=== PATIENT | male | born 1935 | race Caucasian/White ===

== ENCOUNTER 2017-08-17 03:50 | Emergency (ER) | payer MEDICARE, OTHER ==
[~2017-08-17] VITALS: Ht 175.3 cm; Wt 113.6 kg
[~2017-08-17 03:50] MED LIST: AMOXICILLIN 8751 TAB PO; ASPIRIN E.C. 8181 MG PO; ATORVASTATIN; B-121000 MCG PO; BENICAR40 MG PO; BYDUREON PEN2 MG; CARDURA 2MG2 MG PO; DOXAZOCIN; HYDROCHLOROT; INSULIN HUMA100 U/ML IJ; KLOR-CON M2020 MEQ PO; LANTUS100 U/ML; LEVOXYL0.075 MG PO; LIPITOR 80MG80 MG PO; NORCO 325 MG-51 TAB PO; NORVASC 10MG10 MG PO; NOVOLOG FLEX100 U/ML SC; PLAVIX 75MG TAB75 MG PO; PRAVACHOL80 MG PO; PROTONIX 40MG T40 MG PO; TOPROL; TOPROL XL 25MG25 MG PO; TOPROL XL100 MG PO; ZYLOPRIM 300MG300 MG PO
[2017-08-17 03:51] VITALS: TEMP 98.1
[2017-08-17 04:38] LABS: BASO # 0.1 (0.0-0.2); BASO % 0.7 % (0.0-2.0); EOS # 0.2 (0.0-0.7); EOS % 1.6 % (0-4.0); GRAN # 6.6 (1.4-6.5); GRAN % 72.1 % (42.2-75.2); LYMPH # 1.4 (1.2-3.4); LYMPH % 15.1 % (20.0-51.0); MEAN CELL VOLUME 94 fl (80.0-100.0); MEAN CORPUSCULAR HGB CONC 35 g/dl (33.0-37.0); MEAN PLATELET VOLUME 9.6 fl (7.4-10.4); MONO # 0.9 (0.1-0.6); MONO % 9.6 % (1.7-9.3); PLATELET COUNT 229 K/mm3 (130-400); RED BLOOD COUNT 3.62 M/mm3 (4.20-5.60)
[2017-08-17 04:39] LABS: HEMOGLOBIN 11.8 g/dl (13.5-18.0); MEAN CORPUSCULAR HEMOGLOBIN 33 pg (27.0-31.0)
[2017-08-17 05:00] LABS: ALANINE AMINOTRANSFERASE 31 U/L (21-72); ALKALINE PHOSPHATASE 123 U/L (50-136); ANION GAP 14 mmol/L (7-16); AST,SGOT 24 U/L (15-37); BILIRUBIN,TOTAL 0.6 mg/dL (0.0-1.0); BLOOD UREA NITROGEN 33 mg/dL (9-20); CALCIUM 9.2 mg/dL (8.4-10.2); CARBON DIOXIDE 22 mmol/L (22-30); CHLORIDE 104 mmol/L (98-107); CREATININE, serum 1.93 mg/dL (0.66-1.25); GLUCOSE 99 mg/dL (74-106); POTASSIUM 3.3 mmol/L (3.4-5.0); SODIUM 139 mmol/L (137-145); TOTAL PROTEIN 7.4 gm/dL (6.4-8.2)
[2017-08-17 05:11] LABS: TROPONIN-I < 0.012 ng/mL (0.000-0.034)
[2017-08-17 05:59] VITALS: BP 104/54; PULSE 76
== END 2017-08-17 06:01 | disposition home or self-care (01) ==
LOC: COL.ER 03:50
PROVIDERS: Family Medicine
DX: S06.330A Contusion and laceration of cerebrum, unspecified, without loss of consciousness, initial encounter (principal); S05.42XA Penetrating wound of orbit with or without foreign body, left eye, initial encounter; I10 Essential (primary) hypertension; E11.9 Type 2 diabetes mellitus without complications; Z79.02 Long term (current) use of antithrombotics/antiplatelets; Z79.82 Long term (current) use of aspirin; W18.39XA Other fall on same level, initial encounter; W22.8XXA Striking against or struck by other objects, initial encounter; Y92.009 Unspecified place in unspecified non-institutional (private) residence as the place of occurrence of the external cause

== ENCOUNTER → 2017-12-31 | Outpatient (CLI) | payer MEDICARE, OTHER | LOC: COL.RAD 09:16 | DX: K59.1 Functional diarrhea (principal) ==

== ENCOUNTER 2019-04-03 20:16 | Inpatient (IN) | payer MEDICARE, OTHER ==
[2019-04-03] VITALS (65 sets, daily range): BP systolic 163; BP diastolic 88; O2SAT 92–100
[~2019-04-03] VITALS: Ht 175.3 cm; Wt 110.7 kg
[2019-04-03] MEDS ORDERED: KAPSPARGO SPRIN25 MG PO (20:48)
[2019-04-03 20:50] LABS: BASO % 0.6 % (0.0-2.0); EOS # 0.3 (0.0-0.7); EOS % 5.5 % (0-4.0); GRAN # 3.8 (1.4-6.5); GRAN % 60.4 % (42.2-75.2); HEMOGLOBIN 10.6 g/dl (13.5-18.0); LYMPH # 1.5 (1.2-3.4); LYMPH % 23.5 % (20.0-51.0); MEAN CELL VOLUME 91 fl (80.0-100.0); MEAN CORPUSCULAR HEMOGLOBIN 29 pg (27.0-31.0); MEAN CORPUSCULAR HGB CONC 32 g/dl (33.0-37.0); MEAN PLATELET VOLUME 9.9 fl (7.4-10.4); MONO # 0.6 (0.1-0.6); MONO % 9.5 % (1.7-9.3); PLATELET COUNT 229 K/mm3 (130-400); RED BLOOD COUNT 3.62 M/mm3 (4.20-5.60); REDCELL DISTRIBUTION WIDTH-CV 17.6 % (11.5-14.5)
[2019-04-03 21:06] LABS: PROTHROMBIN TIME 11.5 SECONDS (9.7-12.8)
[2019-04-03 21:08] LABS: PARTIAL THROMBOPLASTIN TIME 27.9 SECONDS (26.0-37.0)
[2019-04-03 21:10] LABS: ALBUMIN 3.9 gm/dL (3.5-5.0); BILIRUBIN,TOTAL 0.6 mg/dL (0.0-1.0); C-REACTIVE PROTEIN 3.1 mg/dL (0.0-0.9); CREATININE, serum 1.03 (0.66-1.25); POTASSIUM 4.2 mmol/L (3.4-5.0); TOTAL PROTEIN 7.7 gm/dL (6.4-8.2)
[2019-04-03 21:19] LABS: TROPONIN-I 0.017 ng/mL (0.000-0.035)
--- NOTE | 2019-04-03 22:21 | NUR ---
SHARLENE Camp in the ED calls over report at this time. Patient will be brought over soon.
--- NOTE | 2019-04-03 22:40 | NUR ---
Patient arrives at this time via ED cart. Patient sits up in the bed with little help. No dizziness. Patient ambulates to unit bed. Patient attached to unit monitoring equipment. Assessment complete. Patient's lungs are clear in the upper lobes with fine crackles in the bases bilaterally. HR and rhythm are regular with normal S1 and S2 heard. Bowel sounds are active x4. Patient has +3 pitting edema to BLE and +1 to BUE. Patient has small scrapes and scratches to BLE. They have small intact scabs. Patient has a pressure bandage to his left forehead from a skin cancer biopsy and removal done earlier this week. Dressing is to be removed in office this week. Due to the bleeding from that removal, patient has bruising around his left eye. Patient is alert and oriented, no complaints of pain. Patient arrives on a nitro drip at 10mcg/min. Will leave at this rate for now. Oriented patient to unit and room. Explained and demonstrated the call light. Patient's daughter, Lexis, at the bedside to assist with med rec and history. Admission assessment complete. Patient has no further needs at this time. Will continue to monitor. Call light within reach.
[2019-04-03] MEDS ORDERED: TRESIBA FL200 UNIT/1 SQ (23:50)
[2019-04-03] MEDS ORDERED: DIOVAN/HCT 12.51 TAB PO (23:57)
[2019-04-03] MEDS ORDERED: ZYLOPRIM 300MG300 MG PO (23:58)
[2019-04-03] MEDS ORDERED: PROTONIX 40MG T40 MG PO (23:58)
[2019-04-04] VITALS (886 sets, daily range): BP systolic 121–163; BP diastolic 46–88; PULSE 70–96; TEMP 98–99.3; O2SAT 81–100
--- NOTE | 2019-04-04 | NUR ---
Patient is resting in bed at this time. No current needs. BP continues to slowly come down. Patient has urinated multiple times since being on the unit. He is having good output. No complaints of pain, no shortness of breath. Will continue to monitor. Call light within reach.
[2019-04-04 03:44] LABS: BASO % 0.7 % (0.0-2.0); EOS # 0.4 (0.0-0.7); EOS % 6.5 % (0-4.0); GRAN # 3.5 (1.4-6.5); GRAN % 61.7 % (42.2-75.2); HEMATOCRIT 29.6 % (42.0-52.0); HEMOGLOBIN 9.4 g/dl (13.5-18.0); LYMPH # 1.2 (1.2-3.4); LYMPH % 20.6 % (20.0-51.0); MEAN CELL VOLUME 91 fl (80.0-100.0); MEAN CORPUSCULAR HEMOGLOBIN 29 pg (27.0-31.0); MEAN CORPUSCULAR HGB CONC 32 g/dl (33.0-37.0); MEAN PLATELET VOLUME 9.9 fl (7.4-10.4); MONO # 0.6 (0.1-0.6); PLATELET COUNT 224 K/mm3 (130-400); RED BLOOD COUNT 3.27 M/mm3 (4.20-5.60); REDCELL DISTRIBUTION WIDTH-CV 17.3 % (11.5-14.5)
[2019-04-04 03:54] LABS: ALBUMIN 3.4 gm/dL (3.5-5.0); BILIRUBIN,TOTAL 0.7 mg/dL (0.0-1.0); CALCIUM 8.7 mg/dL (8.4-10.2); CREATININE, serum 1.1 (0.66-1.25); POTASSIUM 3.8 mmol/L (3.4-5.0); TOTAL PROTEIN 6.8 gm/dL (6.4-8.2)
[2019-04-04 04:05] LABS: TROPONIN-I 0.021 ng/mL (0.000-0.035)
--- NOTE | 2019-04-04 07:21 | NUR ---
Bedside report given to SHARLENE Nj.
--- NOTE | 2019-04-04 07:38 | NUR ---
Report received from Stella SU and care resumed.
[2019-04-04 13:02] LABS: COLLECTION METHOD CLEAN CATCH
[2019-04-04 13:15] LABS: PH 7 (5-8); SQUAMOUS EPITHELIAL None Seen /hpf; URINE APPEARANCE Clear; URINE BACTERIA None Seen /hpf; URINE BILIRUBIN Negative (NEGATIVE); URINE BLOOD 1+ (NEGATIVE); URINE COLOR Yellow; URINE GLUCOSE Negative (NEGATIVE); URINE KETONE Negative (NEGATIVE); URINE LEUKOCYTE ESTERASE Negative (NEGATIVE); URINE NITRATE Negative (NEGATIVE); URINE PROTEIN(semi-quant) 2+ (NEGATIVE); URINE RBC 0-2 /hpf; URINE UROBILINOGEN Negative (NEGATIVE)
--- NOTE | 2019-04-04 14:34 | NUR ---
SW met with the patient to discuss a discharge plan. The pt lives alone about one mile outside of [place]. The pt has had a Bi-PAP for the past two years but report he just started using it regularly the past week. He receives his supplies from [employer]. The pt's PCP is Dr. Sim and pt receives medications from [facility] and [facility] with no difficulties. The does not have advanced directives in the EMR but states they are completed and designate pt's daughter Lexis Quesada and pt's son German Orellana. The pt plans to return home upon discharge with Lexis providing transportation. SW will continue to follow ensure a safe discharge.
--- NOTE | 2019-04-04 15:25 | NUR ---
Report called to Nereida SU on medical floor. Pt to transfer to room 352 with tele.
--- NOTE | 2019-04-04 17:42 | NUR ---
Pt resting in recliner with family at bedside. Pt denies pain or SOB at rest. Pt states he feels like he can breathe easier now. Pt has call light in reach and is ordering supper. Pt used urinal with SBA to bathroom.
--- NOTE | 2019-04-04 18:59 | NUR ---
Pt report given to Marce SU
--- NOTE | 2019-04-04 19:45 | NUR ---
Shift assessment complete. Pt resting in bedside recliner, awake, a&o, cooperative c cares. Pt denies pain or any other c/o at this time. INT patent. Tele in place. Incision noted to L scalp from previous skin biopsy site, hypafix dressing C/D/I. Pt denies needs. Call light in reach, will monitor.
--- NOTE | 2019-04-05 04:48 | NUR ---
Pt resting in bed, condition unchanged. Pt has rested well this shift c very few needs. Denies needs at this time. Call light in reach.
[2019-04-05 06:07] LABS: BASO % 0.8 % (0.0-2.0); EOS # 0.4 (0.0-0.7); EOS % 7.9 % (0-4.0); GRAN % 58.8 % (42.2-75.2); LYMPH # 1.1 (1.2-3.4); LYMPH % 20.7 % (20.0-51.0); MEAN CELL VOLUME 90 fl (80.0-100.0); MEAN CORPUSCULAR HGB CONC 33 g/dl (33.0-37.0); MEAN PLATELET VOLUME 9.6 fl (7.4-10.4); MONO # 0.6 (0.1-0.6); MONO % 11.2 % (1.7-9.3); PLATELET COUNT 228 K/mm3 (130-400); RED BLOOD COUNT 3.19 M/mm3 (4.20-5.60); REDCELL DISTRIBUTION WIDTH-CV 17.6 % (11.5-14.5)
[2019-04-05 06:11] LABS: CALCIUM 8.9 mg/dL (8.4-10.2); CREATININE, serum 1.16 (0.66-1.25); MAGNESIUM 1.7 mg/dL (1.6-2.3); POTASSIUM 3.8 mmol/L (3.4-5.0)
[2019-04-05 06:21] LABS: HEMATOCRIT 28.6 % (42.0-52.0); HEMOGLOBIN 9.3 g/dl (13.5-18.0); MEAN CORPUSCULAR HEMOGLOBIN 29 pg (27.0-31.0)
--- NOTE | 2019-04-05 07:15 | NUR ---
Received report, patient is observed having bedside testing done.
[2019-04-05 08:50] VITALS: BP 136/81; PULSE 81; TEMP 98.1
--- NOTE | 2019-04-05 11:35 | NUR ---
Initial visit; Patient thanked Liquor Merchant for stopping in and offering him God's blessings and was receptive to Liquor Merchant keeping him in her prayers.
[2019-04-05 12:22] VITALS: BP 127/58; PULSE 75; TEMP 98.5
[2019-04-05] MEDS ORDERED: LASIX 40MG TABL40 MG PO (15:25)
[2019-04-05] MEDS ORDERED: XARELTO20 MG PO (15:27)
[2019-04-05 15:57] VITALS: BP 143/86; PULSE 74; TEMP 98.1
--- NOTE | 2019-04-05 16:05 | NUR ---
The patient is to discharge home today, 04/05. PT is recommending a walker. SW presented the DME choice form to the pt; pt chose [facility]. SW faxed referral and [facility] reports they can deliver the walker to the pt today. There are no additional needs at this time.
--- NOTE | 2019-04-05 18:29 | NUR ---
Pt discharged. All discharge instructions discussed and reviewed. all questions answered. pt voiced no other concerns. Escorted out via wheelchair by aide. LWR INT dc'd with catheter tip intact and no complications.
== END 2019-04-05 18:00 | disposition home or self-care (01) | DRG 293 ==
LOC: COL.ER 20:16 → ICU 21:47 → MEDICAL 04-04 15:38
PROVIDERS: Emergency Medicine; Internal Medicine; ADMIT Family Medicine
DX: I11.0 Hypertensive heart disease with heart failure (principal); I25.10 Atherosclerotic heart disease of native coronary artery without angina pectoris; E03.9 Hypothyroidism, unspecified; E11.9 Type 2 diabetes mellitus without complications; I50.33 Acute on chronic diastolic (congestive) heart failure; R53.81 Other malaise; I27.20 Pulmonary hypertension, unspecified; N40.0 Benign prostatic hyperplasia without lower urinary tract symptoms; I48.91 Unspecified atrial fibrillation; Z79.4 Long term (current) use of insulin; Z79.82 Long term (current) use of aspirin; Z87.891 Personal history of nicotine dependence; I25.2 Old myocardial infarction; Z95.5 Presence of coronary angioplasty implant and graft; Z85.828 Personal history of other malignant neoplasm of skin
CPT/HCPCS: 99223-AI; 99239; A4216; J0696; J1650; J1940

== ENCOUNTER 2019-06-15 11:07 | Inpatient (IN) | payer MEDICARE, OTHER ==
[2019-06-15] VITALS (205 sets, daily range): BP systolic 113–121; BP diastolic 50–78; PULSE 81–93; TEMP 97.5–98; O2SAT 92–100
[~2019-06-15] VITALS: Ht 175.3 cm; Wt 110.3 kg
[~2019-06-15 11:07] MED LIST changes: +DIOVAN/HCT 12.51 TAB PO; +KAPSPARGO SPRIN25 MG PO; +LASIX 40MG TABL40 MG PO; +TRESIBA FL200 UNIT/1 SQ; +XARELTO20 MG PO
[2019-06-15] MEDS ORDERED: ELIQUIS 5MG PO ×2 (11:34→17:20)
[2019-06-15] MEDS ORDERED: PACERONE100 MG PO (11:36)
[2019-06-15 12:18] LABS: BASO % 0.3 % (0.0-2.0); EOS % 0.5 % (0-4.0); GRAN # 5.5 (1.4-6.5); LYMPH # 0.5 (1.2-3.4); LYMPH % 7.9 % (20.0-51.0); MEAN CELL VOLUME 90 fl (80.0-100.0); MEAN CORPUSCULAR HGB CONC 30 g/dl (33.0-37.0); MEAN PLATELET VOLUME 9.1 fl (7.4-10.4); MONO # 0.5 (0.1-0.6); PLATELET COUNT 193 K/mm3 (130-400); RED BLOOD COUNT 3.43 M/mm3 (4.20-5.60); REDCELL DISTRIBUTION WIDTH-CV 19.5 % (11.5-14.5)
[2019-06-15 12:19] LABS: HEMATOCRIT 30.8 % (42.0-52.0); HEMOGLOBIN 9.3 g/dl (13.5-18.0); MEAN CORPUSCULAR HEMOGLOBIN 27 pg (27.0-31.0)
[2019-06-15 12:46] LABS: ALBUMIN 3.7 gm/dL (3.5-5.0); BILIRUBIN,TOTAL 0.8 mg/dL (0.0-1.0); CALCIUM 8.9 mg/dL (8.4-10.2); CREATININE, serum 1.27 (0.66-1.25); POTASSIUM 3.3 mmol/L (3.4-5.0); TOTAL PROTEIN 7.4 gm/dL (6.4-8.2)
--- NOTE | 2019-06-15 16:59 | NUR ---
Dr Barboza called for consult. States will be over later.
[2019-06-15] MEDS ORDERED: LASIX 20MG TABL20 MG PO (17:00)
--- NOTE | 2019-06-15 17:37 | NUR ---
Dr Barboza in to see pt at this time.
--- NOTE | 2019-06-15 18:03 | NUR ---
Per verbal order by Dr Barboza will try to wean off cardizem.
--- NOTE | 2019-06-15 19:24 | NUR ---
Report given to Delilah SU and care transfered.
[2019-06-15 22:00] LABS: CALCIUM 8.7 mg/dL (8.4-10.2); CREATININE, serum 1.3 (0.66-1.25); POTASSIUM 3.5 mmol/L (3.4-5.0)
[2019-06-16] VITALS (438 sets, daily range): BP systolic 109–134; BP diastolic 67–89; PULSE 76–131; TEMP 97.2–98.5; O2SAT 91–100
[2019-06-16 06:48] LABS: BASO % 0.6 % (0.0-2.0); EOS # 0.2 (0.0-0.7); EOS % 3.6 % (0-4.0); GRAN # 4.4 (1.4-6.5); GRAN % 68.6 % (42.2-75.2); LYMPH # 1.2 (1.2-3.4); MEAN CELL VOLUME 90 fl (80.0-100.0); MEAN CORPUSCULAR HGB CONC 31 g/dl (33.0-37.0); MEAN PLATELET VOLUME 9.2 fl (7.4-10.4); MONO # 0.6 (0.1-0.6); MONO % 8.9 % (1.7-9.3); PLATELET COUNT 237 K/mm3 (130-400); RED BLOOD COUNT 3.38 M/mm3 (4.20-5.60); REDCELL DISTRIBUTION WIDTH-CV 19.9 % (11.5-14.5)
[2019-06-16 06:49] LABS: HEMATOCRIT 30.3 % (42.0-52.0); HEMOGLOBIN 9.3 g/dl (13.5-18.0); MEAN CORPUSCULAR HEMOGLOBIN 28 pg (27.0-31.0)
[2019-06-16 07:03] LABS: CALCIUM 9.1 mg/dL (8.4-10.2); CREATININE, serum 1.34 (0.66-1.25); MAGNESIUM 1.8 mg/dL (1.6-2.3); POTASSIUM 3.8 mmol/L (3.4-5.0)
--- NOTE | 2019-06-16 07:15 | NUR ---
Report given to SHARLENE Jamison and SHARLENE Grace.
--- NOTE | 2019-06-16 07:30 | NUR ---
Report received from SHARLENE Mazariegos. Verbal order from Dr. Barboza to discontinue cardizem gtt received at 0725-IV now saline locked. Patient pleasant and cooperative, care taken over at this time.
--- NOTE | 2019-06-16 11:18 | NUR ---
Hutton catheter flushed at 1105 due to low output despite Lasix administration. Bladder scan completed as well, showing no retained urine. Patient has been trying for bowel movement x2 today with no success-states he has the urge to go but nothing happens when he sits on the toilet, also mentioned he would be willing to try a stool softener if needed. Patient pleasant and cooperative, denies any pain at this time.
--- NOTE | 2019-06-16 11:57 | NUR ---
Initial visit; Patient thanked By[employer] Maker for looking in on him, keeping him in her prayers and contacting his Cafeteria Helper at [facility].
[2019-06-16] MEDS ORDERED: PACERONE100 MG PO (12:51)
[2019-06-16] MEDS ORDERED: BENICAR HCT 12.1 TA1 PO (12:53)
[2019-06-16] MEDS ORDERED: NORVASC 10MG10 MG PO (12:54)
[2019-06-16] MEDS ORDERED: NATURAL IRON65 MG PO (12:55)
--- NOTE | 2019-06-16 13:45 | NUR ---
Report called to SHARLENE Lambert at 1335 for transfer to another unit per Dr. Connolly. Patient notified as well after echo, agreeable to transfer.
--- NOTE | 2019-06-16 14:16 | NUR ---
ALL SOURCE INTELLIGENCE student met with the patient to discuss a discharge plan. The patient lives alone in [place]. The patient has a walker and reports independence with ADLs. The patient attends outpatient physical therapy in [place]. The patient's PCP is Dr. Sim and patient receives medications from [facility] and [facility] with no difficulties. The does not have advanced directives in the EMR but states they are completed and designate patient's daughter, Lexis Quesada and patient's son, German Orellana . The patient plans to return home upon discharge with Lexis providing transportation. Physical therapy is recommending continuation of outpatient physical therapy. Patient will need a script at discharge. Social service will continue to monitor.
--- NOTE | 2019-06-16 14:54 | NUR ---
Patient transfered via wheelchair to medical unit. Belongings in hand, patient tolerated well, crowell draining to gravity, care given over to SHARLENE Lambert.
--- NOTE | 2019-06-16 15:00 | NUR ---
Pt. arrived to floor at this time via w/c with ICU staff. Oriented to room. Denies needs, completed med rec with family at bedside. Hutton draining hoang clear urine. UA sent with lab, will continue to monitor.
[2019-06-16] MEDS ORDERED: JARDIANCE25 PO (15:42)
[2019-06-16] MEDS ORDERED: NORCO 325 MG-51 TAB PO (15:44)
[2019-06-16] MEDS ORDERED: LIPITOR 80MG80 MG PO (15:46)
[2019-06-16 17:00] LABS: COLLECTION METHOD CLEAN CATCH
[2019-06-16 17:26] LABS: HYALINE CAST >12 /lpf; MUCOUS Present /lpf; PH 5 (5-8); SQUAMOUS EPITHELIAL None Seen /hpf; URINE APPEARANCE Cloudy; URINE BACTERIA None Seen /hpf; URINE BILIRUBIN Negative (NEGATIVE); URINE BLOOD 3+ (NEGATIVE); URINE CALCIUM OXALATE CRYSTAL Present /hpf; URINE COLOR Yellow; URINE GLUCOSE Negative (NEGATIVE); URINE KETONE Negative (NEGATIVE); URINE LEUKOCYTE ESTERASE Negative (NEGATIVE); URINE NITRATE Negative (NEGATIVE); URINE PROTEIN(semi-quant) 2+ (NEGATIVE); URINE RBC >50 /hpf; URINE UROBILINOGEN Negative (NEGATIVE)
--- NOTE | 2019-06-16 18:24 | NUR ---
Pt resting in bed wtih son at bedside. Took WBG earlier and it was low, provided snack per request and re-check revealed just under 100. Heart rate increased and sustaining in 120's, called Dr. Connolly, he is okay with monitoring until sustained in 140's then call cardiology. Will continue to monitor and give bedside shift report to nightshift nurse who will resume care.
[2019-06-16 18:25] LABS: HEMATOCRIT 31.3 % (42.0-52.0); HEMOGLOBIN 9.5 g/dl (13.5-18.0)
[2019-06-16 20:10] LABS: INR 1.3 (0.8-3.0); PROTHROMBIN TIME 15.2 SECONDS (9.7-12.8)
[2019-06-16 20:15] LABS: CALCIUM 9.1 mg/dL (8.4-10.2); CREATININE, serum 1.44 (0.66-1.25); POTASSIUM 3.6 mmol/L (3.4-5.0)
[2019-06-17 03:54] VITALS: BP 125/78; PULSE 85; TEMP 98.3
[2019-06-17 07:01] LABS: BASO % 0.3 % (0.0-2.0); EOS # 0.2 (0.0-0.7); EOS % 2.5 % (0-4.0); GRAN # 5.2 (1.4-6.5); GRAN % 75.3 % (42.2-75.2); LYMPH # 0.9 (1.2-3.4); LYMPH % 13.2 % (20.0-51.0); MEAN CELL VOLUME 89 fl (80.0-100.0); MEAN CORPUSCULAR HGB CONC 31 g/dl (33.0-37.0); MEAN PLATELET VOLUME 9.3 fl (7.4-10.4); MONO # 0.6 (0.1-0.6); MONO % 8.4 % (1.7-9.3); PLATELET COUNT 209 K/mm3 (130-400); REDCELL DISTRIBUTION WIDTH-CV 20.1 % (11.5-14.5)
[2019-06-17 07:07] LABS: CALCIUM 8.8 mg/dL (8.4-10.2); CREATININE, serum 1.39 (0.66-1.25); HEMATOCRIT 29.5 % (42.0-52.0); MEAN CORPUSCULAR HEMOGLOBIN 27 pg (27.0-31.0); POTASSIUM 3.1 mmol/L (3.4-5.0)
[2019-06-17 07:38] VITALS: BP 116/75; PULSE 115; TEMP 98.4
--- NOTE | 2019-06-17 08:15 | NUR ---
Pt awake and alert upon entry, no C/O pain at this time, talkative, shift assessments complete, left pt call light in reach, bed in lowest position..
--- NOTE | 2019-06-17 10:49 | NUR ---
Follow-up visit; Patient thanked Hims Coder for calling his episcopal and wishing him God's blessings.
[2019-06-17 11:46] VITALS: BP 118/75; PULSE 121; TEMP 98.1
[2019-06-17 16:10] VITALS: BP 132/76; PULSE 118; TEMP 98.3
--- NOTE | 2019-06-17 18:14 | NUR ---
Pt has been resting in the room today, no C/O pain during the shift, Pt has been independent in the room only needing assistance to manage the catheter bag and IV pole when ambulating, Vs have remained stable.
[2019-06-17 19:29] VITALS: BP 133/73; PULSE 124; TEMP 98.4
[2019-06-17 23:11] VITALS: BP 133/84; PULSE 96
[2019-06-18 04:08] VITALS: BP 135/76; PULSE 112
[2019-06-18 06:54] LABS: CALCIUM 8.7 mg/dL (8.4-10.2); CREATININE, serum 1.21 (0.66-1.25); MAGNESIUM 1.9 mg/dL (1.6-2.3); POTASSIUM 3.5 mmol/L (3.4-5.0)
--- NOTE | 2019-06-18 07:46 | NUR ---
Pt awake and alert, talkative this morning, no C/O pain, medications given with sip of water, shift assessments complete, left Pt call light in reach, bed in lowest position.
[2019-06-18 08:20] VITALS: BP 131/77; PULSE 106; TEMP 98.4
[2019-06-18 11:46] VITALS: BP 120/68; PULSE 113; TEMP 98.7
--- NOTE | 2019-06-18 15:00 | NUR ---
Pt post cardioversion. Sinus elise with rate 45-50 since cardioversion. Intially hypotensive post-sedation provided by ansesthesia. BP 118/90 on transfer to Medical 317. On arrival, BP again low at 75/35 via automatic cuff, 79/39 manually. Pt A&Ox3, denies chest pain or dizziness. Pt does report mild SOA when laying flat, improves with raising HOB. PERRLA, hospice superintendent equal bilaterally, no s/sx of neurologic deficit noted. Bedside handoff to SHARLENE Alejo. Fluids restarted at per-procedure rate. Pt observed for period of time, SBP 90's when this RN leaving unit. Dr Barboza contacted by this RN and notified of this information. No new orders currently received.
[2019-06-18 17:19] VITALS: BP 113/66; PULSE 66; TEMP 97.8
--- NOTE | 2019-06-18 18:32 | NUR ---
Pt resting in room, VS have normalized after returning from the laborer tin can this afternoon, Pt has no C/O pain.
[2019-06-18 19:15] VITALS: BP 119/85; PULSE 76; TEMP 98
[2019-06-18 23:55] VITALS: BP 138/76; PULSE 69; TEMP 97.4
--- NOTE | 2019-06-19 04:46 | NUR ---
Pt up to bathroom with assist. Has had 2 loose BM's in past hour. Back to bed and bi-pap on. Call light within reach.
[2019-06-19 04:55] VITALS: BP 140/61; PULSE 56; TEMP 98.5
--- NOTE | 2019-06-19 06:31 | NUR ---
AM meds given. Denies any discomfort. Continues to wear his bi-pap. States he has had a good night. Call light within reach.
--- NOTE | 2019-06-19 07:00 | NUR ---
Report received from SHARLENE Denise. pT in bed resting with eyes closed, will continue to monitor.
[2019-06-19 07:21] VITALS: BP 138/72; PULSE 69; TEMP 98.8
--- NOTE | 2019-06-19 09:00 | NUR ---
Assessment charted. Pt in bed resting, did not want to get up and go to the chair for breakfast today. Denies pain but states overall feeling well, would like to be able to discharge today. INT to RH and LFA. HR NSR. Will continue to monitor.
[2019-06-19 11:40] VITALS: BP 145/65; PULSE 66; TEMP 98.3
--- NOTE | 2019-06-19 11:59 | NUR ---
Hutton catheter removed, 10 ccs aspirated from baloon, pericare provided and gave urinal. Pt up to shower. Doing well, will ocnitnue to monitor.
[2019-06-19 16:57] VITALS: BP 144/79; PULSE 52; TEMP 98.8
[2019-06-19 17:12] LABS: COLLECTION METHOD CLEAN CATCH
[2019-06-19 17:30] LABS: MUCOUS Present /lpf; PH 5 (5-8); SQUAMOUS EPITHELIAL 0-2 /hpf; URINE APPEARANCE Cloudy; URINE BACTERIA None Seen /hpf; URINE BILIRUBIN Negative (NEGATIVE); URINE BLOOD 3+ (NEGATIVE); URINE COLOR Yellow; URINE GLUCOSE Negative (NEGATIVE); URINE KETONE Negative (NEGATIVE); URINE LEUKOCYTE ESTERASE 1+ (NEGATIVE); URINE NITRATE Negative (NEGATIVE); URINE PROTEIN(semi-quant) 2+ (NEGATIVE); URINE RBC >50 /hpf; URINE UROBILINOGEN Negative (NEGATIVE); URINE WBC 20-50 /hpf
--- NOTE | 2019-06-19 18:37 | NUR ---
Pt had good day. REsting in bed, did get up and take a shower this afternoon. UP to bathroom with SBA. Denies pain. Needs help getting feet up in bed. Will give bedside shift report to nightshift nurse who will resume care.
[2019-06-19 19:19] VITALS: BP 151/71; PULSE 69; TEMP 98.3
--- NOTE | 2019-06-19 21:00 | NUR ---
Patient assessed at this time. Alert and oriented x 4, and able to make needs known. Denies having pain and discomfort at this time. Peripheral IV to right wrist flushed. Site is without redness, warmth, swelling, and pain. Peripheraal IV to left wrist flushed without success, infiltrated. IV taken out. Reports SOB and dyspnea with exertion. Denies at rest. LS CTA in upper lobes, diminished in lower lobes. Respirations even and unlabored. Heart rate irregular. Telemetry in place-A-fib, rate controlled. Capillary refill less than 3 seconds. Non-tenting skin turgor. BSAx4. Abdomen soft and non-tender. 2+ edema BLE. Abraisions to bilateral knees, right 1st-3rd toes, and left 2nd-3rd toes. Patient wears BIPAP at night. Voices no questions, needs, or concerns at this time. Resting in bed with call light within reach.
[2019-06-20 00:16] VITALS: BP 148/70; PULSE 62; TEMP 97.8
[2019-06-20 04:03] VITALS: BP 132/62; PULSE 61; TEMP 97.8
--- NOTE | 2019-06-20 05:55 | NUR ---
Patient has gotten up multiple times throughout the night to go to the bathroom. Did have some diarrhea, but having urinary frequency. Denies having burning and pain with urination. Voices no questions, needs, or concerns at this time. Has been wearing BIPAP while in bed. Call light is within reach.
--- NOTE | 2019-06-20 07:00 | NUR ---
Bedside shift report received from SHARLENE Miles. PT in bed resting with bipap in place, will continue to monitor.
[2019-06-20 07:14] LABS: BASO % 0.4 % (0.0-2.0); EOS # 0.2 (0.0-0.7); EOS % 3.6 % (0-4.0); GRAN # 3.3 (1.4-6.5); GRAN % 69.3 % (42.2-75.2); LYMPH # 0.8 (1.2-3.4); LYMPH % 15.8 % (20.0-51.0); MEAN CELL VOLUME 90 fl (80.0-100.0); MEAN CORPUSCULAR HGB CONC 31 g/dl (33.0-37.0); MEAN PLATELET VOLUME 9.6 fl (7.4-10.4); MONO # 0.5 (0.1-0.6); MONO % 10.5 % (1.7-9.3); PLATELET COUNT 193 K/mm3 (130-400); RED BLOOD COUNT 3.13 M/mm3 (4.20-5.60); REDCELL DISTRIBUTION WIDTH-CV 19.5 % (11.5-14.5)
[2019-06-20 07:19] LABS: HEMOGLOBIN 8.6 g/dl (13.5-18.0); MEAN CORPUSCULAR HEMOGLOBIN 27 pg (27.0-31.0)
[2019-06-20 07:28] LABS: CALCIUM 8.7 mg/dL (8.4-10.2); CREATININE, serum 1.73 (0.66-1.25); POTASSIUM 3.6 mmol/L (3.4-5.0)
[2019-06-20 07:53] VITALS: BP 136/71; PULSE 66; TEMP 97.5
--- NOTE | 2019-06-20 10:40 | NUR ---
Assessment charted. Pt resting in bed at side of bed eating breakfast, feeling well. Denies needs, INT to LFA and RH. Voidign well, will [id number] to monitor.
[2019-06-20 11:54] VITALS: BP 156/79; PULSE 77; TEMP 97.6
[2019-06-20 16:19] VITALS: BP 145/74; PULSE 81; TEMP 97.6
--- NOTE | 2019-06-20 18:09 | NUR ---
Pt has done well today. UP to bathroom several times throughout shift, approximately every 30 minutes to either have loose stool or void. Urine is much more yellow and clear. Denies needs, will give bedside shfit report to nightshift nurse who will resume care.
[2019-06-20 19:00] VITALS: BP 152/70; PULSE 75; TEMP 98.2
--- NOTE | 2019-06-20 22:42 | NUR ---
SHIFT ASSESSMENT COMPLETE. A&o X4. DENIES PAIN. BI-PAP ON FOR THE NIGHT. MILD EDEMA TO BILAT LE. INT R HAND AND INT L FOREARM. BOTH FLUSHED. TELE ON. HRR. LS CTA. BS + X4. CALL LIGHT IN REACH.
[2019-06-21 00:11] VITALS: BP 158/74; PULSE 56; TEMP 97.8
[2019-06-21 05:19] VITALS: BP 139/78; PULSE 72; TEMP 98.5
[2019-06-21 06:53] LABS: BASO % 0.5 % (0.0-2.0); EOS # 0.2 (0.0-0.7); EOS % 4.9 % (0-4.0); GRAN # 2.3 (1.4-6.5); GRAN % 63.9 % (42.2-75.2); LYMPH # 0.7 (1.2-3.4); LYMPH % 19.6 % (20.0-51.0); MEAN CELL VOLUME 88 fl (80.0-100.0); MEAN CORPUSCULAR HGB CONC 31 g/dl (33.0-37.0); MEAN PLATELET VOLUME 9.5 fl (7.4-10.4); MONO # 0.4 (0.1-0.6); MONO % 10.6 % (1.7-9.3); PLATELET COUNT 190 K/mm3 (130-400); RED BLOOD COUNT 3.16 M/mm3 (4.20-5.60); REDCELL DISTRIBUTION WIDTH-CV 19.2 % (11.5-14.5)
[2019-06-21 07:01] VITALS: BP 131/61; PULSE 57; TEMP 97.5
[2019-06-21 07:07] LABS: CALCIUM 8.6 mg/dL (8.4-10.2); CREATININE, serum 1.49 (0.66-1.25); HEMATOCRIT 27.9 % (42.0-52.0); HEMOGLOBIN 8.7 g/dl (13.5-18.0); MEAN CORPUSCULAR HEMOGLOBIN 28 pg (27.0-31.0); POTASSIUM 3.6 mmol/L (3.4-5.0)
[2019-06-21] MEDS ORDERED: PACERONE100 MG PO (07:59)
[2019-06-21] MEDS ORDERED: KLOR-CON M1010 MEQ PO (10:03)
[2019-06-21] MEDS ORDERED: NOVOLOG 100U100 U/M1 SQ (10:03)
[2019-06-21 11:40] VITALS: BP 131/61; PULSE 57; TEMP 97.5
--- NOTE | 2019-06-21 13:25 | NUR ---
Biofuels Research Scientist attended clinical rounds with the team. Hospitalist and patient discussed SNF placement and then transitioning to Assisted Living. Patient states he is on the board for [facility] and would like to go there. Following rounds, MISHA met with patient and obtained signature on a patient choice form selecting [facility] as first and only preference. MISHA faxed a referral to [facility] and contacted [facility] who advised they would likely accept. Sulema followed up with MISHA and set up transportation for 1:00pm. MISHA provided update to patient's son, Elmo and patient RN Nereida. MISHA faxed discharge orders to [facility]. MISHA to continue to follow as needed.
[2019-06-21 13:26] VITALS: BP 131/61; PULSE 57; TEMP 97.5
--- NOTE | 2019-06-21 13:39 | NUR ---
Architectural Engineering Teacher was contacted by SHARLENE Padron who advised results from patient cdiff test had not been returned at this time. SW contacted [facility] Leone at [facility] to adjust cloth picker time to 1:45pm. SW to continue to follow as needed.
--- NOTE | 2019-06-21 13:45 | NUR ---
PATIENT DISCHARGE VIA WC TO [facility]. STUDENT NURSE DC'D IV SITE AND COVERED SITE WITH GAUZE & BANDAID. TELE REMOVED. INFO PACKET SENT WITH CIVIL CLERK. PATIENT DISCHARGED.
== END 2019-06-21 13:45 | DRG 637 ==
LOC: COL.ER 11:07 → ICU 14:54 → MEDICAL 06-16 15:29
PROVIDERS: Emergency Medicine; Hospitalist; Internal Medicine Interventional Cardiology; Physician Assistant; Student in an Organized Health Care Education/Training Program
PROC: 5A2204Z Restoration of Cardiac Rhythm, Single (ICD-10-PCS; principal; 2019-06-18)
DX: E11.649 Type 2 diabetes mellitus with hypoglycemia without coma (principal); I50.31 Acute diastolic (congestive) heart failure; I48.20 Chronic atrial fibrillation, unspecified; I13.0 Hypertensive heart and chronic kidney disease with heart failure and stage 1 through stage 4 chronic kidney disease, or unspecified chronic kidney disease; N17.9 Acute kidney failure, unspecified; I25.10 Atherosclerotic heart disease of native coronary artery without angina pectoris; E03.9 Hypothyroidism, unspecified; M10.9 Gout, unspecified; E86.9 Volume depletion, unspecified; E86.0 Dehydration; I27.20 Pulmonary hypertension, unspecified; G47.33 Obstructive sleep apnea (adult) (pediatric); E87.6 Hypokalemia; N48.89 Other specified disorders of penis; R19.7 Diarrhea, unspecified; T50.2X5A Adverse effect of carbonic-anhydrase inhibitors, benzothiadiazides and other diuretics, initial encounter; N18.3 Chronic kidney disease, stage 3 (moderate); N40.0 Benign prostatic hyperplasia without lower urinary tract symptoms; Z85.828 Personal history of other malignant neoplasm of skin; Z87.891 Personal history of nicotine dependence; Z95.820 Peripheral vascular angioplasty status with implants and grafts; Z79.4 Long term (current) use of insulin; I25.2 Old myocardial infarction
CPT/HCPCS: 99222-AI; 99232-AI; 99233-AI; 99239; J1815; J1940; J2704; J3480; J7042

== ENCOUNTER 2019-07-07 10:38 | Day surgery (SDC) | payer MEDICARE, OTHER ==
[2019-07-07] VITALS (268 sets, daily range): BP systolic 115–142; BP diastolic 64–88; PULSE 57–108; TEMP 97.8–98.4; O2SAT 85–100
[~2019-07-07] VITALS: Ht 177.8 cm; Wt 110.3 kg
[~2019-07-07 10:38] MED LIST changes: +BENICAR HCT 12.1 TA1 PO; +ELIQUIS 5MG PO; +JARDIANCE25 PO; +KLOR-CON M1010 MEQ PO; +LASIX 20MG TABL20 MG PO; +NATURAL IRON65 MG PO; +NOVOLOG 100U100 U/M1 SQ; +PACERONE100 MG PO
[2019-07-07] MEDS ORDERED: PACERONE100 MG PO (11:33)
[2019-07-07 11:36] LABS: INR 1.8 (0.8-3.0); PROTHROMBIN TIME 21.4 SECONDS (9.7-12.8)
[2019-07-07 11:37] LABS: POTASSIUM 3.5 mmol/L (3.4-5.0)
[2019-07-07] MEDS ORDERED: KLOR-CON 1010 MEQ PO (11:39)
[2019-07-07 12:11] LABS: THYROID STIMULATING HORMONE 4.45 uIU/mL (0.465-4.680)
--- NOTE | 2019-07-07 15:19 | NUR ---
Dopamine gtt stopped per direction of Dr. Ureña.
--- NOTE | 2019-07-07 17:14 | NUR ---
Admission assessment complete at this time. Plan of care reviewed at bedside with patient. Additional time taken to address any other needs or concerns. Vitals stable at this time. Pt denies pain or any other discomforts. Bed in low position, call light within reach. Will continue to monitor.
--- NOTE | 2019-07-07 19:18 | NUR ---
Bedside report given to SHARLENE Love.
--- NOTE | 2019-07-07 19:20 | NUR ---
RECEIVED REPORT FROM SHARLENE CLIFFORD. PT STATES HE IS DONE WITH HIS DINNER TRAY. PT ON 5L VIA NC AT THIS TIME AND TURNED DOWN TO 4L, POX 100%. VSS. PT DENIES ANY CP/PRESSURE. CALL LIGHT WITHIN REACH. NO ACUTE S/S OF DISTRESS NOTED.
--- NOTE | 2019-07-07 19:45 | NUR ---
POX 100%, O2 DECREASED TO 3L VIA NC. RR 17.
--- NOTE | 2019-07-07 20:30 | NUR ---
PT PLACED ON 2L VIA NC, POX 97%. NO ACUTE S/S OF RESP DISTRESS NOTED. ALL OTHER VSS.
--- NOTE | 2019-07-07 22:00 | NUR ---
PT PLACED ON RA. POX 97%. PT ABLE TO AMBULATE X1 ASSIST TO BSC. SEE I&O FLOWSHEET. PT ABLE TO REPOSITION SELF BACK INTO BED. CALL LIGHT WITHIN REACH.
--- NOTE | 2019-07-07 22:48 | NUR ---
PT STATES THAT HIS LEGS ARE RESTLESS AND HE HAS A HARD TIME SETTLING AT THIS TIME. PT REQUESTS SOMETHING TO HELP HIM SLEEP. SPOKE WITH DR BORJA, SEE MAR FOR NEW ORDERS. PRINTED EDUCATION GIVEN TO PT ON AMBIEN.
--- NOTE | 2019-07-07 23:50 | NUR ---
RT AT BEDSIDE TO PLACE PT ON BIPAP PER WHAT PT NORMALLY WEARS AT HOME AT NIGHT. DENIES ANY FURTHER NEEDS.
[2019-07-08] VITALS (170 sets, daily range): BP systolic 117–146; BP diastolic 66–73; PULSE 53–63; TEMP 98–98.3; O2SAT 88–97
--- NOTE | 2019-07-08 06:59 | NUR ---
PT PLACED ON 2L VIA NC AT THIS TIME WHILE RESTING, POX NOTED TO BE DECREASING TO 89% ON RA.
--- NOTE | 2019-07-08 08:00 | NUR ---
Shift assessment complete at this time. Plan of care reviewed at bedside with patient. Additional time taken to address any other needs or concerns. Vitals stable at this time. Pt denies pain or any other discomfort. Bed in low position, call light within reach, will continue to monitor.
--- NOTE | 2019-07-08 08:30 | NUR ---
Pt discharged to [facility] facility at this time. Pt escorted to transportation via wheelchair. Discharge education provided to patient and facility nurse. Time taken to address all questions and concerns.
== END 2019-07-08 08:30 | disposition home or self-care (01) ==
LOC: COL.CAR 10:38 → ICU 15:52 → COL.CAR 07-08 08:30
PROVIDERS: Internal Medicine Interventional Cardiology
DX: I48.91 Unspecified atrial fibrillation (principal); I95.9 Hypotension, unspecified; I08.1 Rheumatic disorders of both mitral and tricuspid valves; Z79.02 Long term (current) use of antithrombotics/antiplatelets; Z79.4 Long term (current) use of insulin; Z79.01 Long term (current) use of anticoagulants
CPT/HCPCS: J0461; J1265; J1940; J7030

== ENCOUNTER → 2020-02-23 | Outpatient (CLI) | payer MEDICARE, OTHER ==
[~2020-02-23] MED LIST changes: +KLOR-CON 1010 MEQ PO
== END ==
LOC: COL.RAD 11:26
DX: N40.1 Benign prostatic hyperplasia with lower urinary tract symptoms (principal); R39.198 Other difficulties with micturition; E11.21 Type 2 diabetes mellitus with diabetic nephropathy